=== PATIENT | male | born 1980 | race Two or more races ===

== ENCOUNTER 2022-03-07 11:19 | Inpatient (IN) | payer SELFPAY ==
[2022-03-07 11:31] VITALS: BMI 45.6
[2022-03-07] MEDS ORDERED: ACETAMINOPHEN 1000 MG/100 ML BAG IVPB ONE (12:13)
[2022-03-07] MEDS ORDERED: ACETAMINOPHEN INJECTION 100 ML IVPB ONE (12:40)
[2022-03-07 12:52] LABS: BASO % 0.8 % (0-2.0); HEMATOCRIT 54.1 % (35.4-49); HEMOGLOBIN 17.6 GM/dL (11.7-16.9); LYMPH % 10.6 % (8-40); MCH 28.5 pg (25.7-33.7); MCHC 32.6 g/dl (32.0-35.9); MEAN CELL VOLUME 87.5 fl (80-96); MEAN PLT VOLUME 8.2 fl (7.5-11.1); MONO % 11.3 % (3.8-10.2); NEUT % 77.3 % (42.8-82.8); PLATELET COUNT 237 10^3/uL (134-434); RBC 6.18 M/mm3 (4.00-5.60); RDW 14.3 % (11.9-15.9); WHITE BLOOD COUNT 11.5 K/mm3 (4.0-10.0)
[2022-03-07 12:59] LABS: INR 1.16 (0.83-1.09); PROTHROMBIN TIME (PATIENT) 13.4 SEC (9.7-13.0)
[2022-03-07 13:02] LABS: ACTIVATED PTT 37.8 SECONDS (25.2-36.5)
[2022-03-07 13:07] LABS: VENOUS BASE EXCESS 2.2 mmol/L (-2-2); VENOUS O2 SATURATION 74.9 % (70-80); VENOUS PCO2 53.9 mmHg (38-52); VENOUS PH 7.355 (7.310-7.410)
[2022-03-07 13:12] LABS: CHLORIDE 96 mmol/L (98-107)
[2022-03-07 13:14] LABS: ALBUMIN 3.6 g/dl (3.4-5.0); BLOOD UREA NITROGEN 12.6 mg/dL (7-18); CO2 29 mmol/L (21-32); GLUCOSE,RANDOM 108 mg/dL (74-106)
[2022-03-07 13:17] LABS: CREATININE 0.9 mg/dL (0.55-1.3); SGOT/AST 55 U/L (15-37); SGPT/ALT 83 U/L (13-61)
[2022-03-07 13:19] LABS: BILIRUBIN,TOTAL 0.5 mg/dL (0.2-1); TOT PROT 7.9 g/dl (6.4-8.2)
[2022-03-07 13:20] LABS: ALK PHOS 119 U/L (45-117)
[2022-03-07 13:26] LABS: ANION GAP 11 MMOL/L (8-16); SODIUM 135 mmol/L (136-145)
[2022-03-07] MEDS ORDERED: OSELTAMIVIR PHOSPHATE 75 MG CAPSULE PO ONE (13:52)
[2022-03-07] MEDS ORDERED: OSELTAMIVIR PHOSPHATE 75 MG CAPSULE ONE (14:00)
[2022-03-07 15:05] LABS: N-TERMINAL BNP 60.9 pg/ml (5-125)
[2022-03-07] MEDS ORDERED: ACETAMINOPHEN 1000 MG/100 ML BAG IVPB PRN (15:25)
[2022-03-07] MEDS: SODIUM CHLORIDE 1,000 ML IV SCH (16:51)
[2022-03-07] MEDS ORDERED: ALBUTEROL SO4 HFA INHALER IH PRN (18:49)
[2022-03-07 20:56] LABS: EPI CELLS 35 /uL (0-25.1); HYALINE CASTS 18 /uL (0-3.1); PH,URINE 5.5 (5.0-8.0); URINE APPEARANCE CLEAR; URINE BACTERIA 3 /uL (0-1359); URINE BILIRUBIN 1+ (NEGATIVE); URINE COLOR DK YELLOW; URINE GLUCOSE (UA) NEGATIVE (NEGATIVE); URINE KETONE TRACE (NEGATIVE); URINE LEUK ESTERASE NEGATIVE (NEGATIVE); URINE NITRITE NEGATIVE (NEGATIVE); URINE PROTEIN 3+ (NEGATIVE); URINE RBC 22 /uL (0-23.9); URINE WBC 26 /uL (0-25.8)
[2022-03-08] MEDS ORDERED: OSELTAMIVIR PHOSPHATE 75 MG CAPSULE ONE ×3 (03:44→22:38)
[2022-03-08] MEDS: OSELTAMIVIR PHOSPHATE 75 MG CAPSULE PO SCH ×3 (03:53→22:39)
[2022-03-08] MEDS ORDERED: ACETAMINOPHEN INJECTION 100 ML IVPB ONE (09:22)
[2022-03-08 09:54] LABS: BASO % 0.6 % (0-2.0); HEMATOCRIT 55.1 % (35.4-49); HEMOGLOBIN 17.8 GM/dL (11.7-16.9); LYMPH % 13.7 % (8-40); MCH 28.5 pg (25.7-33.7); MCHC 32.2 g/dl (32.0-35.9); MEAN CELL VOLUME 88.3 fl (80-96); MEAN PLT VOLUME 8.3 fl (7.5-11.1); MONO % 9.5 % (3.8-10.2); NEUT % 76.2 % (42.8-82.8); PLATELET COUNT 260 10^3/uL (134-434); RBC 6.24 M/mm3 (4.00-5.60); RDW 14.3 % (11.9-15.9)
[2022-03-08] MEDS: ENOXAPARIN NA (PORCINE) 40 MG/0.4 ML DISP.SYRIN SQ SCH ×2 (10:00→22:38)
[2022-03-08] MEDS ORDERED: ENOXAPARIN NA (PORCINE) 40 MG/0.4 ML DISP.SYRIN SQ SCH (10:00)
[2022-03-08] MEDS ORDERED: ALBUTEROL SO4 HFA INHALER IH ONE (10:18)
[2022-03-08 10:21] LABS: ALBUMIN 3.4 g/dl (3.4-5.0); BLOOD UREA NITROGEN 13.8 mg/dL (7-18); CALCIUM 9.1 mg/dL (8.5-10.1)
[2022-03-08 10:24] LABS: CREATININE 0.7 mg/dL (0.55-1.3)
[2022-03-08 10:26] LABS: TOT PROT 7.9 g/dl (6.4-8.2)
[2022-03-08 11:28] LABS: BILIRUBIN,TOTAL 0.8 mg/dL (0.2-1)
[2022-03-08] MEDS: SODIUM CHLORIDE 1,000 ML IV SCH (15:42)
[2022-03-08] MEDS ORDERED: ENOXAPARIN NA (PORCINE) 40 MG/0.4 ML DISP.SYRIN SQ ONE (22:38)
[2022-03-09 07:33] VITALS: RESP 22
[2022-03-09 09:18] LABS: CALCIUM 8.8 mg/dL (8.5-10.1)
[2022-03-09 09:19] LABS: ALBUMIN 3.4 g/dl (3.4-5.0); BLOOD UREA NITROGEN 14.4 mg/dL (7-18)
[2022-03-09 09:22] LABS: CREATININE 0.7 mg/dL (0.55-1.3)
[2022-03-09 09:23] LABS: TOT PROT 7.9 g/dl (6.4-8.2)
[2022-03-09 09:24] LABS: BILIRUBIN,TOTAL 0.6 mg/dL (0.2-1)
[2022-03-09] MEDS ORDERED: ENOXAPARIN NA (PORCINE) 40 MG/0.4 ML DISP.SYRIN SQ ONE (11:54)
[2022-03-09] MEDS: ENOXAPARIN NA (PORCINE) 40 MG/0.4 ML DISP.SYRIN SQ SCH (11:55)
[2022-03-09 16:37] VITALS: BP 140/82; PULSE 73; TEMP 98.3
== END 2022-03-09 16:39 | disposition home or self-care (01) | DRG 113 ==
LOC: JER 11:19 → JERBED 14:40 → OBSVTOIN 03-08 14:48
PROVIDERS: ADMIT Internal Medicine; ATTEND Internal Medicine
DX: J10.1 Influenza due to other identified influenza virus with other respiratory manifestations (principal); E66.2 Morbid (severe) obesity with alveolar hypoventilation; D75.1 Secondary polycythemia; Z68.42 Body mass index [BMI] 45.0-49.9, adult; E78.5 Hyperlipidemia, unspecified; R09.02 Hypoxemia; R94.31 Abnormal electrocardiogram [ECG] [EKG]
CPT/HCPCS: 0241U-QW; 36415; 71045-TC-FY; 76705-TC; 80048; 80053; 80061; 81003; 82553; 82803; 83036; 83605; 83880; 84443; 84484; 85025; 85379; 85610; 85730; 86850; 86900; 86901; 87040; 87086; 93005; 93010; 93306-TC; 94761; 99285-25; G0378